=== PATIENT | female | born 1965 | race Asian ===

== ENCOUNTER 2016-12-09 06:25 | Day surgery (SDC) | payer BC ==
[~2016-12-09] VITALS: Ht 152.4 cm; Wt 61.6 kg
--- NOTE | 2016-12-25 10:36 | OR ---
ADMIT: 12/09/2016 RM/LOC: [facility] MR#: [id number] [id number] [address] SAL[address]O [address] [place] [address] Operative/Delivery Room Report SEX: F AGE: 51 : 1965 SURGERY DATE: 12/09/2016 SURGEON: Jose Alejandro Nguyen MD PROCEDURE: EGD with antral biopsies. PREOPERATIVE DIAGNOSES: 1. History of Helicobacter pylori gastritis. 2. History of gastric ulcer. POSTOPERATIVE DIAGNOSES: 1. Moderate antral gastritis 2. Resolved Gastric ulcer 3. Grade 1 reflux esophagitis. COMPLICATION: None immediate. INDICATION FOR PROCEDURE: She has a history of persistent abdominal pain, had an EGD showed H. pylori gastritis with a gastric ulcer. Therefore she is requesting we do repeat EGD to be sure this ulcer is healed. DESCRIPTION OF PROCEDURE: After the patient was informed of the risks, benefits, alternatives of the procedure, informed consent was obtained. She was taken back to the GI lab and placed in left lateral decubitus position. Sedation was provided by the anesthesiologist. Once appropriately sedated, gastroscope was advanced under direct visualization to the esophagus without difficulty. Image 1/3 does reveal the GE junction. There was grade 1 reflux change here. The scope was advanced into the stomach. There was noted to be diffuse erythematous change of the antrum consistent with antral gastritis. Image 2/3 does reveal the pylorus was cannulated revealing normal-appearing duodenal bulb. Random duodenal biopsies were not performed as they were performed on the previous scope. The scope was removed back into the antrum. Multiple biopsies were taken, it was retroflexed revealing normal-appearing gastric cardia as revealed on image 3/3. There was no gastric ulcer present. The scope was straightened and removed back to the area of distal esophagus which was unchanged. Procedure was terminated. She tolerated without immediate complication and transferred to recovery room in stable condition. PLAN: She will follow up with me in 1 week to go over biopsy results. Recommend repeat endoscopy pending pathology. Jose Alejandro Nguyen MD/ marylou JOB #: [id number] CC: Jose Alejandro Nguyen, Attending Physician NO FAMILY PHYSICIAN, Family Physician
== END 2016-12-09 10:40 | disposition home or self-care (01) ==
LOC: SSS 06:25
PROC: 0DB68ZX Excision of Stomach, Via Natural or Artificial Opening Endoscopic, Diagnostic (ICD-10-PCS; principal; 2016-12-09)
DX: K29.50 Unspecified chronic gastritis without bleeding (principal); K21.0 Gastro-esophageal reflux disease with esophagitis; I10 Essential (primary) hypertension; E78.5 Hyperlipidemia, unspecified; E11.9 Type 2 diabetes mellitus without complications; M81.0 Age-related osteoporosis without current pathological fracture; D50.9 Iron deficiency anemia, unspecified; Z79.899 Other long term (current) drug therapy; Z98.890 Other specified postprocedural states